=== PATIENT | male | born 1990 | race Caucasian/White ===

== ENCOUNTER 2017-01-24 14:04 | Emergency (ER) | payer SELFPAY | END 2017-01-24 14:55 | disposition home or self-care (01) | LOC: ER1 14:04 | DX: K04.7 Periapical abscess without sinus (principal); K02.9 Dental caries, unspecified; S02.5XXA Fracture of tooth (traumatic), initial encounter for closed fracture; X58.XXXA Exposure to other specified factors, initial encounter; F17.210 Nicotine dependence, cigarettes, uncomplicated; Z88.2 Allergy status to sulfonamides | CPT/HCPCS: 96372; 99282; J1885 ==

== ENCOUNTER 2020-12-20 18:25 | Emergency (ER) | payer SELFPAY ==
[~2020-12-20 18:25] MED LIST: AMOXICILLIN500 M1 PO; AMOXICILLIN500 MG PO; Bromphed DM PO; FLONASE 0.05% N16 GM; IBUPROFEN600 MG PO; ZOFRAN 4 MG TAB4 MG PO
[2020-12-20] MEDS ORDERED: PENVEE K 500 M500 MG PO (19:30)
[2020-12-20] MEDS ORDERED: IBUPROFEN800 MG PO (19:30)
== END 2020-12-20 19:36 | disposition home or self-care (01) ==
LOC: ER1 18:25
DX: K02.9 Dental caries, unspecified (principal); K05.00 Acute gingivitis, plaque induced; F17.200 Nicotine dependence, unspecified, uncomplicated; Z88.2 Allergy status to sulfonamides
CPT/HCPCS: 99283

== ENCOUNTER 2021-03-07 16:35 | Emergency (ER) | payer SELFPAY ==
[~2021-03-07 16:35] MED LIST changes: +IBUPROFEN800 MG PO; +PENVEE K 500 M500 MG PO
== END 2021-03-07 20:44 | disposition left against medical advice (07) ==
LOC: ER1 16:35
DX: Z53.21 Procedure and treatment not carried out due to patient leaving prior to being seen by health care provider (principal)

== ENCOUNTER 2021-03-27 21:55 | Emergency (ER) | payer BC | END 2021-03-28 00:26 | disposition home or self-care (01) | LOC: ER1 21:55 | DX: R51.9 Headache, unspecified (principal); F17.200 Nicotine dependence, unspecified, uncomplicated; Z88.2 Allergy status to sulfonamides | CPT/HCPCS: 96372; 99283; J1200; J1885 ==

== ENCOUNTER 2021-04-27 19:49 | Emergency (ER) | payer BC ==
[2021-04-27] MEDS ORDERED: ZOFRAN ODT 4 MG4 MG PO (22:21)
== END 2021-04-27 22:24 | disposition home or self-care (01) ==
LOC: ER1 19:49
DX: R51.9 Headache, unspecified (principal); R11.2 Nausea with vomiting, unspecified; F17.210 Nicotine dependence, cigarettes, uncomplicated; Z88.2 Allergy status to sulfonamides
CPT/HCPCS: 99283

== ENCOUNTER 2021-06-18 21:58 | Emergency (ER) | payer BC ==
[~2021-06-18 21:58] MED LIST changes: +ZOFRAN ODT 4 MG4 MG PO
== END 2021-06-18 23:20 | disposition home or self-care (01) ==
LOC: ER1 21:58
DX: R05 Cough (principal); R07.89 Other chest pain; Z88.2 Allergy status to sulfonamides; F17.210 Nicotine dependence, cigarettes, uncomplicated; Z20.822 Contact with and (suspected) exposure to COVID-19
CPT/HCPCS: 71045; 99285; U0003

== ENCOUNTER 2021-09-05 10:49 | Emergency (ER) | payer BC ==
[2021-09-05] MEDS ORDERED: ZOFRAN4 MG PO (11:39)
== END 2021-09-05 12:00 | disposition home or self-care (01) ==
LOC: ER1 10:49
DX: R11.2 Nausea with vomiting, unspecified (principal); R19.7 Diarrhea, unspecified; F17.200 Nicotine dependence, unspecified, uncomplicated; Z88.2 Allergy status to sulfonamides
CPT/HCPCS: 99283

== ENCOUNTER 2021-11-30 21:27 | Emergency (ER) | payer BC ==
[~2021-11-30 21:27] MED LIST changes: +ZOFRAN4 MG PO
== END 2021-11-30 22:10 | disposition home or self-care (01) ==
LOC: ER1 21:27
DX: R19.7 Diarrhea, unspecified (principal); R11.10 Vomiting, unspecified; R10.9 Unspecified abdominal pain; Z88.2 Allergy status to sulfonamides; F17.210 Nicotine dependence, cigarettes, uncomplicated
CPT/HCPCS: 99283

== ENCOUNTER 2022-01-17 20:14 | Emergency (ER) | payer BC ==
[2022-01-17 20:51] LABS: HEMOGLOBIN 14.5 gm/dl (14.0-17.5); RED BLOOD COUNT 4.85 M/UL (4.20-5.50); WHITE BLOOD COUNT 10.7 K/UL (4.5-11.0)
[2022-01-17 21:24] LABS: BUN/CREATININE RATIO 16 (0-10)
[2022-01-17] MEDS ORDERED: ZOFRAN ODT 4 MG4 MG PO (21:48)
== END 2022-01-17 22:04 | disposition home or self-care (01) ==
LOC: ER1 20:14
PROVIDERS: Emergency Medicine
DX: G43.909 Migraine, unspecified, not intractable, without status migrainosus (principal); Z20.822 Contact with and (suspected) exposure to COVID-19; F17.200 Nicotine dependence, unspecified, uncomplicated; Z88.2 Allergy status to sulfonamides
CPT/HCPCS: 0240U; 80053; 83690; 85025; 99284